=== PATIENT | male | born 1950 | race Two or more races ===

== ENCOUNTER 2018-09-22 22:16 | Emergency (ER) | payer OTHER ==
[~2018-09-22] VITALS: Ht 157.5 cm; Wt 70.3 kg
[~2018-09-22 22:16] MED LIST: AML5T PO; ASPI81CH43 PO; ATEN50TA PO; ATO40T PO; LISI40TA PO; METF-370 PO
[2018-09-22] MEDS ORDERED: ACETAMINOPHEN 325 MG TAB PO ONE (22:45)
[2018-09-22 23:05] LABS: Basophils # (auto) 0.1 uL; Basophils % (auto) 0.9 % (0.0-2.0); Eosinophils # (auto) 0.3 uL; Eosinophils % (auto) 3.1 % (0.0-7.0); Hematocrit 44.8 % (41.0-53.0); Hemoglobin 15.4 g/dL (13.5-17.5); Lymphocytes # (auto) 3.2 uL; Lymphocytes % (auto) 34.5 % (10.0-50.0); Mean Corpuscular Hemoglobin 31.4 pg (28.0-32.0); Mean Corpuscular Hgb Conc. 34.4 g/dL (32.0-36.0); Mean Corpuscular Volume 91.2 fL (80.0-100.0); Monocytes # (auto) 0.7 uL; Neutrophils % (auto) 53.5 % (37.0-80.0); Nucleated Red Blood Cells % 0.1 %; Platelet Count (auto) 255 10^3/uL (140-450); Red Blood Cells 4.92 10^6/uL (4.5-5.90); Red Cell Distribution Width 13.3 % (11.8-14.3); White Blood Cell 9.3 10^3/uL (4.4-10.8)
[2018-09-22 23:20] LABS: Albumin 3.2 g/dL (3.4-5.0); Calcium 8.3 mg/dL (8.5-10.1); Magnesium 2.1 mg/dL (1.6-2.6); Potassium 3.5 mmol/L (3.5-5.1)
[2018-09-22 23:21] LABS: INR 0.96 (0.9-1.15); Partial Thromboplastin Time 26.4 sec (23.78-33.04); Prothrombin Time 10.3 sec (9.27-12.13)
[2018-09-22 23:25] LABS: Bilirubin, Total 0.3 mg/dL (0.2-1.0); Total Protein 7.6 g/dL (6.4-8.2)
[2018-09-23] MEDS ORDERED: ASPirin-EC 325mg tab PO ONE (03:15)
[2018-09-23] MEDS ORDERED: InsuLIN REG 1unit/0.01ml Soln (100units/ml) IV ONE (03:15)
[2018-09-23] MEDS ORDERED: SODIUM CHLORIDE 0.9% 1,000 ML IV ONE (03:15)
[2018-09-23] MEDS ORDERED: NITROGLYCERIN 0.2MG/HR TOPICAL PATCH TD ONE (03:15)
[2018-09-23 03:24] VITALS: BP 174/76
== END 2018-09-23 03:55 | disposition left against medical advice (07) ==
LOC: ER 22:16
DX: I10 Essential (primary) hypertension (principal); E78.5 Hyperlipidemia, unspecified; E11.9 Type 2 diabetes mellitus without complications; R51 Headache
CPT/HCPCS: 36415; 71045; 80053; 82010; 82962; 83735; 84484; 85025; 85610; 85730; 94761

== ENCOUNTER 2018-09-23 14:36 | Inpatient (IN) | payer MEDICARE, OTHER ==
[~2018-09-23] VITALS: Ht 162.6 cm; Wt 68.2 kg
[2018-09-23] MEDS ORDERED: ASPirin 81 mg TAB PO ONE (15:15)
[2018-09-23 15:16] LABS: Basophils # (auto) 0.1 uL; Basophils % (auto) 0.8 % (0.0-2.0); Eosinophils # (auto) 0.1 uL; Eosinophils % (auto) 1.1 % (0.0-7.0); Hematocrit 44.8 % (41.0-53.0); Hemoglobin 15.4 g/dL (13.5-17.5); Lymphocytes # (auto) 1.9 uL; Lymphocytes % (auto) 23.2 % (10.0-50.0); Mean Corpuscular Hemoglobin 31.4 pg (28.0-32.0); Mean Corpuscular Hgb Conc. 34.3 g/dL (32.0-36.0); Mean Corpuscular Volume 91.6 fL (80.0-100.0); Monocytes # (auto) 0.5 uL; Neutrophils # (auto) 5.8 uL; Neutrophils % (auto) 68.9 % (37.0-80.0); Nucleated Red Blood Cells % 0.1 %; Platelet Count (auto) 262 10^3/uL (140-450); Red Cell Distribution Width 13.2 % (11.8-14.3); White Blood Cell 8.4 10^3/uL (4.4-10.8)
[2018-09-23 15:29] LABS: Albumin 3.3 g/dL (3.4-5.0); BUN/Creatinine Ratio 19.2; Calcium 8.7 mg/dL (8.5-10.1); Potassium 3.7 mmol/L (3.5-5.1)
[2018-09-23 15:37] LABS: Total Protein 7.9 g/dL (6.4-8.2)
[2018-09-23 15:40] LABS: Bilirubin, Total 0.3 mg/dL (0.2-1.0)
[2018-09-23 15:42] LABS: INR 0.98 (0.9-1.15); Partial Thromboplastin Time 26.8 sec (23.78-33.04); Prothrombin Time 10.5 sec (9.27-12.13)
[2018-09-23] MEDS ORDERED: NITROGLYCERIN 0.4 MG SL TAB SL PRN (16:30)
[2018-09-23] MEDS ORDERED: DEXTROSE (50%) 50ML SYRG IV PRN (16:30)
[2018-09-23] MEDS ORDERED: cloNIDine HCL 0.1 MG TAB PO PRN (16:30)
[2018-09-23] MEDS ORDERED: HYDROcodone-ACET 5/325MG TAB PO PRN (16:30)
[2018-09-23] MEDS ORDERED: MORPHINE SULFATE 4 MG/ML SYR/VIAL IV PRN ×2 (16:30)
[2018-09-23] MEDS ORDERED: ACETAMINOPHEN 325 MG TAB PO PRN (16:30)
[2018-09-23] MEDS ORDERED: DOCUSATE SOD 100 MG CAP PO PRN (16:30)
[2018-09-23] MEDS ORDERED: TEMAZEPAM 15 MG CAP PO PRN (16:30)
[2018-09-23] MEDS ORDERED: ONDANSETRON HCL 4 MG/2 ML VIAL IV PRN (16:30)
[2018-09-23] MEDS ORDERED: CLOPIDOGREL BISULFATE 75 MG TAB PO ONE (16:45)
[2018-09-23] MEDS: InsuLIN REG 1unit/0.01ml Soln (100units/ml) SC SCH ×2 (18:46→22:58)
[2018-09-23] MEDS: ACCU-CHEK COMFORT CURVE STRIP VI SCH ×2 (18:46→22:59)
[2018-09-23] MEDS: SODIUM CHLOR 0.9% PF (SALINE LOCK) 10ML VIAL/SYR IV SCH (22:57)
[2018-09-23] MEDS: ATORVASTATIN 20 MG TAB PO SCH (22:57)
[2018-09-23] MEDS: amLODIPine BESYLATE 5 MG TAB PO SCH (22:57)
[2018-09-23] MEDS: ATENOLOL 50 MG TAB PO SCH (22:58)
[2018-09-23] MEDS: FAMOTIDINE 20 MG TAB PO SCH (22:58)
[2018-09-23 23:04] VITALS: BP 163/71
[2018-09-23 23:09] VITALS: BP 163/71
[2018-09-24 03:19] LABS: Urine Bacteria NONE SEEN /hpf (None Seen); Urine Blood Negative /uL (Negative); Urine Specific Gravity 1.019 (1.001-1.035); Urine WBC <1 /hpf (0 - 3)
[2018-09-24 05:00] VITALS: BP 155/76
[2018-09-24] MEDS: InsuLIN REG 1unit/0.01ml Soln (100units/ml) SC SCH ×4 (05:54→21:48)
[2018-09-24] MEDS: SODIUM CHLOR 0.9% PF (SALINE LOCK) 10ML VIAL/SYR IV SCH ×3 (05:54→21:46)
[2018-09-24] MEDS: ACCU-CHEK COMFORT CURVE STRIP VI SCH ×4 (05:55→21:48)
[2018-09-24 06:56] LABS: Basophils # (auto) 0.1 uL; Basophils % (auto) 0.7 % (0.0-2.0); Eosinophils # (auto) 0.3 uL; Eosinophils % (auto) 3.6 % (0.0-7.0); Hematocrit 44.6 % (41.0-53.0); Hemoglobin 15.4 g/dL (13.5-17.5); Lymphocytes # (auto) 2.2 uL; Lymphocytes % (auto) 27.9 % (10.0-50.0); Mean Corpuscular Hemoglobin 31.9 pg (28.0-32.0); Mean Corpuscular Hgb Conc. 34.6 g/dL (32.0-36.0); Mean Corpuscular Volume 92.1 fL (80.0-100.0); Monocytes # (auto) 0.7 uL; Monocytes % (auto) 8.7 % (0.0-12.0); Neutrophils # (auto) 4.6 uL; Neutrophils % (auto) 59.1 % (37.0-80.0); Nucleated Red Blood Cells % 0.1 %; Platelet Count (auto) 250 10^3/uL (140-450); Red Blood Cells 4.84 10^6/uL (4.5-5.90); Red Cell Distribution Width 12.9 % (11.8-14.3); White Blood Cell 7.8 10^3/uL (4.4-10.8)
[2018-09-24 07:02] LABS: Albumin 3.1 g/dL (3.4-5.0); Calcium 8.3 mg/dL (8.5-10.1); Potassium 3.8 mmol/L (3.5-5.1)
[2018-09-24 07:05] LABS: BUN/Creatinine Ratio 18.2; Bilirubin, Total 0.5 mg/dL (0.2-1.0); Total Protein 7.1 g/dL (6.4-8.2)
[2018-09-24 08:00] VITALS: BP 121/70
[2018-09-24 09:00] VITALS: BP 121/70
[2018-09-24] MEDS: FAMOTIDINE 20 MG TAB PO SCH ×2 (10:35→21:46)
[2018-09-24] MEDS: MULTIPLE VITAMIN TAB PO SCH (10:35)
[2018-09-24] MEDS: LISINOPRIL 20 MG TAB PO SCH (10:36)
[2018-09-24] MEDS: ASPirin-EC 81 mg tab PO SCH (10:36)
[2018-09-24] MEDS: CLOPIDOGREL BISULFATE 75 MG TAB PO SCH (10:36)
[2018-09-24 12:04] VITALS: BP 152/76
[2018-09-24 15:34] VITALS: BP 152/76
[2018-09-24 17:00] VITALS: BP 156/79
[2018-09-24] MEDS: ATORVASTATIN 20 MG TAB PO SCH (21:46)
[2018-09-24] MEDS: amLODIPine BESYLATE 5 MG TAB PO SCH (21:46)
[2018-09-24] MEDS: ATENOLOL 50 MG TAB PO SCH (21:47)
[2018-09-25 05:22] VITALS: BP 134/68
[2018-09-25] MEDS: InsuLIN REG 1unit/0.01ml Soln (100units/ml) SC SCH (05:33)
[2018-09-25] MEDS: SODIUM CHLOR 0.9% PF (SALINE LOCK) 10ML VIAL/SYR IV SCH (05:33)
[2018-09-25] MEDS: ACCU-CHEK COMFORT CURVE STRIP VI SCH (05:34)
[2018-09-25 08:49] VITALS: BP 129/60
[2018-09-25] MEDS: MULTIPLE VITAMIN TAB PO SCH (10:43)
[2018-09-25] MEDS: CLOPIDOGREL BISULFATE 75 MG TAB PO SCH (10:43)
[2018-09-25] MEDS: ASPirin-EC 81 mg tab PO SCH (10:44)
[2018-09-25] MEDS: LISINOPRIL 20 MG TAB PO SCH (10:44)
[2018-09-25] MEDS: FAMOTIDINE 20 MG TAB PO SCH (10:44)
== END 2018-09-25 11:55 | disposition home or self-care (01) | DRG 305 ==
LOC: ER 14:43 → TELE 14:44 → TELE-EAST 22:25
PROVIDERS: ADMIT Internal Medicine; ATTEND Internal Medicine Pulmonary Disease
DX: I13.10 Hypertensive heart and chronic kidney disease without heart failure, with stage 1 through stage 4 chronic kidney disease, or unspecified chronic kidney disease (principal); I24.9 Acute ischemic heart disease, unspecified; E44.1 Mild protein-calorie malnutrition; H11.32 Conjunctival hemorrhage, left eye; N18.3 Chronic kidney disease, stage 3 (moderate); E11.21 Type 2 diabetes mellitus with diabetic nephropathy; E11.22 Type 2 diabetes mellitus with diabetic chronic kidney disease; E78.5 Hyperlipidemia, unspecified; G51.0 Bell's palsy; Z79.82 Long term (current) use of aspirin; Z79.899 Other long term (current) drug therapy; Z68.25 Body mass index [BMI] 25.0-25.9, adult
CPT/HCPCS: 36415; 80053; 81001; 82962; 83036; 83735; 83880; 84443; 84484; 85025; 85610; 85730; 93005; 93306; 94761; G0378; J1815

== ENCOUNTER 2019-06-05 09:43 | Emergency (ER) | payer OTHER ==
[~2019-06-05 09:43] MED LIST changes: -ATO40T PO
[2019-06-05 09:55] VITALS: BP 139/56
[2019-06-05] MEDS ORDERED: KETOROLAC TROMETH 60MG/2ML VIAL IM ONE (12:00)
== END 2019-06-05 12:27 | disposition home or self-care (01) ==
LOC: ER 09:43
DX: G44.209 Tension-type headache, unspecified, not intractable (principal); M54.5 Low back pain; G89.29 Other chronic pain; E11.9 Type 2 diabetes mellitus without complications; E78.5 Hyperlipidemia, unspecified; I10 Essential (primary) hypertension
CPT/HCPCS: 70450; 96372; 99284; J1885